=== PATIENT | male | born 2005 | race Caucasian/White ===

== ENCOUNTER 2024-02-26 08:27 | Emergency (ER) | payer OTHER ==
[~2024-02-26] VITALS: Ht 193 cm; Wt 141.0 kg
[2024-02-26] MEDS ORDERED: NS 1,000 ML IV SCH (08:45)
[2024-02-26] MEDS ORDERED: Ondansetron 4 MG/2 ML VIAL IV ONE (08:45)
[2024-02-26] MEDS ORDERED: Ketorolac 30 MG/ML VIAL IV ONE (08:45)
[2024-02-26 09:15] LABS: BASO # 0.02 K/mm3 (0.02-0.10); EOS # 0.05 K/mm3 (0.04-0.40); EOS % 0.5 % (0.0-4.0); HEMATOCRIT 42.1 % (36.0-47.0); HEMOGLOBIN 14.4 g/dL (12.5-16.1); MEAN CELL VOLUME 85 fl (78-95); MEAN CORPUSCULAR HEMOGLOBIN 29 pg (26-32); MEAN CORPUSCULAR HGB CONC 34 g/dL (33-37); MEAN PLATELET VOLUME 8.6 fl (7.4-10.4); MONO # 0.61 K/mm3 (0.20-0.80); PLATELET COUNT 283 K/mm3 (130-400); RED BLOOD COUNT 4.95 M/mm3 (4.20-5.60); RED CELL DISTRIBUTION WIDTH 12.1 % (11.5-14.5); WHITE BLOOD COUNT 10.7 K/mm3 (4.8-10.8)
[2024-02-26 09:21] LABS: ALBUMIN 4.5 g/dL (3.5-5.0)
[2024-02-26 09:22] LABS: CALCIUM 10.4 mg/dL (8.3-10.5)
[2024-02-26 09:23] LABS: TOTAL PROTEIN 7.7 g/dL (6.4-8.3)
[2024-02-26 09:25] LABS: TOTAL BILIRUBIN 0.5 mg/dL (0.2-1.2)
[2024-02-26] MEDS ORDERED: Iohexol 300 - 100 ML VIAL IV ONE (09:42)
[2024-02-26] MEDS ORDERED: HYDROcodone/Acetaminophen 7.5-325 MG TAB PO ONE (10:15)
[2024-02-26] MEDS ORDERED: ZOFRAN ODT4 MG PO (10:20)
[2024-02-26] MEDS ORDERED: FLOMAX0.4 MG PO (10:20)
[2024-02-26] MEDS ORDERED: KETOROLAC10 MG PO (10:20)
[2024-02-26] MEDS ORDERED: NORCO 325 MG-51 TA1 PO (10:39)
[2024-02-26 10:40] VITALS: BP 138/82
== END 2024-02-26 10:48 | disposition home or self-care (01) ==
LOC: ED 08:27
PROVIDERS: Nurse Practitioner
DX: N13.2 Hydronephrosis with renal and ureteral calculous obstruction (principal); N23 Unspecified renal colic
CPT/HCPCS: J1885; J2405; J7030; Q9967